=== PATIENT | male | born 1940 | race Caucasian/White ===

== ENCOUNTER 2016-09-21 05:37 | Inpatient (IN) | payer OTHER ==
[2016-09-21] MEDS ORDERED: LIDOCAINE 1% 2 ML INJ ONE (06:23)
[2016-09-21] MEDS ORDERED: ceFAZolin 2 GM/DEXTROSE 100 ML IV ONE (06:30)
[2016-09-21] MEDS ORDERED: THROMBIN (BOVINE) 5,000 UNIT VIAL TP ONE (06:46)
[2016-09-21] MEDS ORDERED: BUPIVACAINE/EPI 0.25% 30 ML SDV ONE (06:46)
[2016-09-21] MEDS ORDERED: BACITRACIN 50,000 UNITS/10 ML SYR IRR ONE ×2 (06:47→11:05)
[2016-09-21] MEDS ORDERED: LACTULOSE 20 GM/30 ML UDCUP PO PRN (07:02)
[2016-09-21] MEDS ORDERED: BISACODYL 10 MG SUPP PR PRN (07:02)
[2016-09-21] MEDS ORDERED: DIAZEPAM 10 MG/2 ML SYR IVP PRN (07:02)
[2016-09-21] MEDS ORDERED: MAGNESIUM HYDROXIDE 30 ML UDCUP PO PRN (07:02)
[2016-09-21] MEDS ORDERED: diphenhydrAMINE 25 MG CAP PO PRN (07:02)
[2016-09-21] MEDS ORDERED: TEMAZEPAM 15 MG CAP PO PRN (07:02)
[2016-09-21] MEDS ORDERED: HYDROmorphONE/DILAUDID 6 MG/30 ML PCA IV PRN (07:02)
[2016-09-21] MEDS ORDERED: ONDANSETRON 4 MG/2 ML VIAL IVP PRN (07:02)
[2016-09-21] MEDS ORDERED: oxyCODONE IR 5 MG TAB PO PRN (07:02)
[2016-09-21] MEDS ORDERED: POLYETHYLENE GLYCOL 3350 17 GM PKT PO PRN (07:02)
[2016-09-21] MEDS ORDERED: NALOXONE HCL 0.4 MG/ML INJ IVP PRN (07:02)
[2016-09-21] MEDS ORDERED: HYDROCODONE/APAP 10/325 TAB PO PRN (07:02)
[2016-09-21] MEDS ORDERED: ONDANSETRON DISINTEGRATING 4 MG TAB PO PRN (07:02)
[2016-09-21] MEDS ORDERED: MIDAZOLAM 2 MG/2 ML VIAL ONE (07:29)
[2016-09-21] MEDS ORDERED: fentaNYL 250 MCG/5 ML INJ ONE (07:35)
[2016-09-21] MEDS ORDERED: PROPOFOL/EMULSION 500 MG/50 ML BOTTLE IV ONE (07:36)
[2016-09-21] MEDS ORDERED: REMIFENTANIL HCL 1 MG VIAL ONE ×2 (07:36)
[2016-09-21] MEDS ORDERED: epHEDrine SULFATE 10 MG/ML SYR ONE ×2 (07:57→12:24)
[2016-09-21] MEDS ORDERED: ALBUMIN 5% 250 ML BOTTLE IV ONE (07:58)
[2016-09-21] MEDS ORDERED: FAMOTIDINE 20 MG/NACL 50 ML IV SCH (09:00)
[2016-09-21] MEDS ORDERED: VASOPRESSIN 20 UNIT/ML VIAL ONE (09:39)
[2016-09-21] MEDS ORDERED: PHENYLEPHRINE HCL 100 MCG/ML SYR ONE (09:39)
[2016-09-21] MEDS ORDERED: DEXAMETHASONE 4 MG/ML VIAL ONE ×4 (12:21→12:22)
[2016-09-21] MEDS ORDERED: ceFAZolin 1 GM VIAL ONE (12:41)
[2016-09-21] MEDS ORDERED: fentaNYL 100 MCG/2 ML INJ ONE (12:58)
[2016-09-21] MEDS ORDERED: HYDROmorphONE/DILAUDID 1 MG/ML SYR ONE ×4 (13:36→15:12)
--- NOTE | 2016-09-21 13:44 | SOAPPROG ---
SOAP Progress Note Assessment/Plan: Post Op Visit: S: Awake and alert. NAD. Pt with expected lower back pain O: AFVSS/PERRLA/EOMI no droop CN 2-12 grossly intact +lt touch 5/5 BUE/BLE = CDI ROLANDO in place A/P: 76 yo male that is s/p removal of L2-L4 hardware with new TLIF L4/5 and L5/ S1 with new L3-S1 fusion -orders in place -call with any questions or concerns -take medications as directed -pt seen by Dr Dial as well -brace when out of bed 09/21/16 13:41 ICD10 Worksheet Patient Problems: Problems Problem Status Onset Arthrodesis status Acute Lumbar radiculitis Acute Lumbar stenosis Acute
[2016-09-21] MEDS ORDERED: DIAZEPAM 10 MG/2 ML SYR ONE (13:46)
[2016-09-21] MEDS: METOPROLOL SUCCINATE XR 25 MG TAB PO SCH (15:35)
[2016-09-21] MEDS: LOSARTAN POTASSIUM 50 MG TAB PO SCH (15:35)
[2016-09-21] MEDS: SERTRALINE HCL 50 MG TAB PO SCH (15:37)
[2016-09-21] MEDS: SENNOSIDES/DOCUSATE SODIUM TAB PO SCH ×2 (15:37→20:13)
[2016-09-21] MEDS: METHOCARBAMOL 750 MG TAB PO PRN (16:44)
[2016-09-21] MEDS: HYDROmorphONE/DILAUDID 4 MG TAB PO PRN ×2 (16:44→20:13)
[2016-09-21] MEDS: NS W/ 20 KCl/L 1,000 ML IV SCH (16:47)
[2016-09-21] MEDS: HYDROmorphONE/DILAUDID 1 MG/ML SYR IVP PRN ×5 (17:16→23:35)
[2016-09-21] MEDS: EZETIMIBE 10 MG TAB PO SCH (20:12)
[2016-09-21] MEDS: ROSUVASTATIN CALCIUM 40 MG TAB PO SCH (20:12)
[2016-09-21] MEDS: DIAZEPAM 5 MG TAB PO PRN (20:13)
[2016-09-21] MEDS: FAMOTIDINE 20 MG TAB PO SCH (20:13)
[2016-09-22] MEDS: METHOCARBAMOL 750 MG TAB PO PRN ×3 (00:20→13:33)
[2016-09-22] MEDS: HYDROmorphONE/DILAUDID 4 MG TAB PO PRN ×6 (00:20→22:09)
[2016-09-22] MEDS: HYDROmorphONE/DILAUDID 1 MG/ML SYR IVP PRN ×2 (02:20→21:30)
--- NOTE | 2016-09-22 02:23 | GOP ---
[f rep st] OPERATIVE REPORT DATE OF OPERATION: 09/21/2016 SURGEON: Jessie Dial MD SUPERVISOR [employer] PROCESSING: Tae Slater PA-C. PREOPERATIVE DIAGNOSIS: 1. Lumbar spondylosis. 2. Lumbar adjacent segment disease. 3. Bilateral lumbosacral radiculopathy. 4. Broken hardware at L3-4. 5. 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 6. Severe bilateral foraminal stenosis, L4-5, L5-S1. 7. Spinal stenosis, L4-5, L5-S1. POSTOPERATIVE DIAGNOSIS: 1. Lumbar spondylosis. 2. Lumbar adjacent segment disease. 3. Bilateral lumbosacral radiculopathy. 4. Broken hardware at L3-4. 5. 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 6. Severe bilateral foraminal stenosis, L4-5, L5-S1. 7. Spinal stenosis, L4-5, L5-S1. PROCEDURE PERFORMED: 1. Removal of posterior segmental instrumentation, L2-L3- L4 (19665). 2. Placement of new segmental instrumentation, L3-L4-L5- S1 (73406). 3. Same-incision bone graft harvest. 4. Posterolateral and intervertebral arthrodesis with bilateral decompressions, and a left-sided ap proach at L4-5 and a right-sided approach at L5-S1 ([id number], [id number]). 5. Placement of expandable biomechanical intervertebral device, L4-5, L5-S1. 6. Spinal stereotaxy. 7. Microscope. 8. Posterolateral arthrodesis only at L3-4 ([id number]). 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 ESTIMATED BLOOD LOSS: 500 cc. INDICATIONS: The patient is a 76-year-old gentleman, who had a prior history of successful L2-3 fus ion, followed sometime later by a successful adjacent segment fusion at L3-4, who came in complainin g of right greater than left lumbosacral radiculopathy, but bilateral symptoms, and his MRI demonstr ated progressive stenosis at L4-5 and bilateral recess stenosis at 4-5, 5-1. There was also signifi cant bilateral foraminal stenosis at L4-5, 5-1. Subsequent x-rays demonstrated evidence of a fractu re of the right-sided jason at L3-4, and pseudoarthrosis was suspected, but we did not feel this was t he cause of this new right-sided symptoms. I suggested extending the fusion from L2 all the way cholo n to the sacrum, and explained to him on the risk of continued symptoms, nerve injury, spinal fluid leak, pseudoarthrosis, and further adjacent segment disease, at this point, above the fusion. He kn ew there was a greater risk of pseudoarthrosis at the sacrum, and our plan was to used bicortical sc rews at S1. He accepted these risks. He wanted to proceed. DESCRIPTION OF PROCEDURE: The patient was taken to the operating room, placed in the supine positio n. General anesthesia was begun. He was flipped prone onto the Pancho table. Care was taken to p ad all points of contact. His back was sterilely prepped and draped by the surgeon. A localizing x -ray was taken. We opened the prior incision and extended it inferiorly for a distance of about 8 c m for a total length of incision of about 12 cm. Subcutaneous tissue was dissected using the plasma blade down through the fascia, and a subperiosteal dissection was made down to the inferior lamina of L2, the laminae of L3, 4, 5, and the sacrum was exposed. The hardware on the right at L2-L3-L4 w as exposed as well as the hardware on the left at L3-4. We removed all the segmental hardware and, indeed, there was a broken jason on the right-hand side. There was still solid bony purchase of the s crews themselves. On the left-hand side where the jason was not broken, the left L4 screw was slightl y more loose than the left L3 screw, but there had not been complete compromise on that pedicle. We denuded the facet joints bilaterally at L4-5, 5-1, and after removing the hardware, we thoroughly r e-prepped the L3-4 level, anticipating that we would have confirmation of the pseudoarthrosis. Ther e was really very little motion at L3-4, and it was difficult to get these levels to move relative t o 1 another, but I was convinced that there, almost certainly after removal of the hardware, was a p seudarthrosis. We performed an O-arm span and it was carefully inspected, and on the right, there w as a hairline area just below the pedicle that had non fused, and on the left-hand side, this grain merchandiser olateral fusion clearly had not taken. We then used stealth navigation to place pedicle screws bila terally at L3, L4, L5, and the sacrum, and we placed bicortical screws at the sacrum. We used 7.5 m m on the left, we used a 7.5 mm at L4, and on the right, we used several 7.5 mm. There was excellen t bony purchase of all of the hardware. We irrigated with antibiotic saline solution. We took 100 mm rods that were pre-bent and increased the lordosis slightly on these, and placed them down over t he rods, and reduced our hardware onto the rods themselves. This caused some distraction between L3 , L4, L5, and the sacrum, and we were now more clearly able to visualize the small area of pseudoart hrosis, particularly visible on the right-hand side at L3-4, and this area was fully decorticated fo r posterolateral arthrodesis. We also improved our visualization on the left at L3-4, and final tig htened the cap screws down on the rods, and this got substantial elevation between L4 and L5 by redu cing the hyperlordosis. We then removed all the soft tissue from the L4-L5 spinous process and harv ested these for autologous grafting purposes. We then harvested the L4 lamina and the L5 lamina for autologous grafting purposes and under the scope, we drilled bilateral laminectomies at L5-S1 and L 4-5, and performed bilateral decompressions. On the right at L5-S1, we elected to do a complete fac etectomy to decompress the exiting L5 nerve root there. There was also left-sided foraminal stenosi s with exiting L5 root at L5-S1 on the left-hand side, and we performed a more extended foraminotomy on the left to decompress the exiting root. We then performed bilateral decompressions at L4-5 and in this case, we performed a left-sided facetectomy for decompression of the exiting left L4 root. We then did a right lateral recess decompression at L4-5 to decompress the right-sided L5 root. We then swept the thecal sac medially at L5-S1, removed the disk and the cartilaginous endplates, inci sed the space for placement of a 7 mm expandable graft. We chose a shorter 7 x 23 mm cage for L5-S1 . We chose a 9 x 28 mm subsequently at L4-5. At L4-5, we did incise the disk from the left-sided a pproach, removed the disk and the cartilaginous endplates. This was a much larger disk space, and w e got a large amount of disk out of it. We placed BMP into each of the disk spaces, followed by bon y autograft, followed by our expandable cages, a 7 x 23 at L5-S1 and a 9 x 28 at L4-5, and expanded these according to company specifications. They had been packed with bone morphogenic protein. We used a grand total of 6 mg of BMP for this surgery. We then placed the BMP and bony autograft poste rolaterally bilaterally from L3 to the sacrum. We placed a large amount of bone posterolaterally at L3-4 to ensure arthrodesis there. This bone had been very thoroughly prepped. We placed a subfasc ial drain and then closed the incision in multiple layers using Vicryl sutures. A running PDS was p laced in the skin itself. There were no complications. COMPLICATIONS: None. INSTRUMENTATION USED: [employer] 5.5 system. /[id number]/MODL
[2016-09-22] MEDS: DIAZEPAM 5 MG TAB PO PRN ×2 (02:25→19:36)
[2016-09-22] MEDS: NS W/ 20 KCl/L 1,000 ML IV SCH ×2 (07:23→21:37)
[2016-09-22 08:19] LABS: % IMMATURE GRANULYOCYTES 0.4 % (0.0-1.1); ABSOLUTE IMMATURE GRANULOCYTES 0.05 10^3/uL (0.00-0.10); ADD DIFF? NO; ADD MORPH? NO; ADD SCAN? NO; ATYPICAL LYMPHOCYTE FLAG 0 (0-99); FRAGMENT RBC FLAG 0 (0-99); HEMOGLOBIN 9.8 g/dL (13.7-17.5); LEFT SHIFT FLG 10 (0-99); LIPEMIA HEMOLYSIS FLAG 90 (0-99); MEAN CELL HEMOGLOBIN 32.3 pg (27.9-34.1); MEAN CELL HEMOGLOBIN CONCENTR. 33.8 g/dL (32.4-36.7); MEAN CELL VOLUME 95.7 fL (81.5-99.8); MEAN PLATELET VOLUME 8.9 fL (8.7-11.7); PLATELET CLUMPS FLAG 0 (0-99); PLATELET COUNT 125 10^3/uL (150-400); RED BLOOD CELL COUNT 3.03 10^6/uL (4.40-6.38); RED CELL DISTRIBUTION WIDTH 12.1 % (11.5-15.2)
[2016-09-22 08:54] LABS: ANION GAP 5 mEq/L (8-16); CALCIUM 8.7 mg/dL (8.5-10.4); CARBON DIOXIDE 26 mEq/l (22-31); CHLORIDE 103 mEq/L (97-110); CREATININE 0.8 mg/dL (0.7-1.3); GLOMERULAR FILTRATION RATE > 60; GLUCOSE 105 mg/dL (70-100); POTASSIUM 4.8 mEq/L (3.5-5.2); SODIUM 134 mEq/L (134-144)
[2016-09-22] MEDS: FAMOTIDINE 20 MG TAB PO SCH ×2 (09:00→19:36)
[2016-09-22] MEDS: LOSARTAN POTASSIUM 50 MG TAB PO SCH (09:30)
[2016-09-22] MEDS: METOPROLOL SUCCINATE XR 25 MG TAB PO SCH (09:30)
[2016-09-22] MEDS: SENNOSIDES/DOCUSATE SODIUM TAB PO SCH ×2 (09:31→19:36)
[2016-09-22] MEDS: THYROID 60 MG TAB PO SCH (09:31)
[2016-09-22] MEDS: SERTRALINE HCL 50 MG TAB PO SCH (09:31)
--- NOTE | 2016-09-22 09:31 | SOAPPROG ---
SOAP Progress Note Assessment/Plan: Assessment: 76 yo M POD #1 sp L3-S1 fusion w/ L4/5, L5/S1 TLIF Plan: stable and doing well overall :) PT/OT dow out x-rays today scd/paola for dvt prophylaxis wean IVF please call with neuro changes discussed with Dr Dial 09/22/16 09:28 Subjective: surgical back pain, no leg pain. no weakness. Objective: Vital Signs Temp Pulse Resp BP Pulse Ox 37.0 C 65 14 104/62 96 09/22/16 07:47 09/22/16 07:47 09/22/16 07:47 09/22/16 07:47 09/22/16 07:47 Laboratory Results 09/22/16 08:00 09/22/16 08:00 09/21/16 09/22/16 09/23/16 05:59 05:59 05:59 Intake Total 5300 Output Total 3690 Balance 1610 AAOX4, +FC PERRL, EOMI, no facial droop 5/5 + light touch C/D/I ICD10 Worksheet Patient Problems: Problems Problem Status Onset Arthrodesis status Acute Lumbar radiculitis Acute Lumbar stenosis Acute
[2016-09-22] MEDS: ROSUVASTATIN CALCIUM 40 MG TAB PO SCH (19:36)
[2016-09-22] MEDS: EZETIMIBE 10 MG TAB PO SCH (19:36)
[2016-09-23] MEDS: METHOCARBAMOL 750 MG TAB PO PRN ×3 (00:19→14:30)
[2016-09-23] MEDS: HYDROmorphONE/DILAUDID 4 MG TAB PO PRN ×5 (02:38→21:27)
--- NOTE | 2016-09-23 07:14 | NEUSURGPN ---
Date of Surgery: 09/21/16 Post Op Day: 2 Assessment/Plan: Assessment: 76 yo M POD #2 s/p L3-S1 fusion w/ L4/5, L5/S1 TLIF Plan: -stable and doing well overall -pain better under control this am -PT/OT-CPM -dow out -CDI -x-rays look good -scd/paola for dvt prophylaxis -wean IVF -please call with neuro changes -seen with Dr Dial Subjective: Awake and alert. NAD. Eating/drinking and voiding. No f/c/n/v/d. No flores/neck/ chest/abd or gu complaints. Pain better controlled this am Objective: AFVSS/PERRLA/EOMI no droop CN 2-12 grossly intact +lt touch 5/5 BUE/BLE = CDI ROLANDO in place-to be removed this am Neuro Check Frequency: per routine Urinary Catheter in Place: No Catheter Insertion Date: 09/21/16 - Physician Discussed Patient with : Jayro Patient Seen by : Jayro Neurosurgery Physical Exam - Vitals, I&O, Labs I and O 09/22/16 09/23/16 09/24/16 05:59 05:59 05:59 Intake Total 5300 825 Output Total 3690 1980 600 Balance 1610 -1155 -600 Weight 99.79 kg Intake: Oral (ml) 1000 300 IV Intake (ml) 3200 IV Infused (ml) 1100 525 NS W/ 20 KCl/L 1,000 ml @ 1050 525 75 mls/hr IV CONT CHANEL Rx #:[id number] ceFAZolin 1 GM/DEXTROSE 50 50 ml @ 200 mls/hr IV Q8H CHANEL Rx#:[id number] Output: Urine (ml) 2320 1550 600 Catheter 2320 Toilet 500 Urinal 1050 600 Estimated Blood Loss (ml) 500 Wound Drainage (ml) 870 385 Left Back Pancho Rossi 870 385 Wound Drainage (ml) 45 #1 Back Pancho Rossi 45 Other: Intake Quantity Yes Sufficient Number of Voids Toilet 1 Number of Stools Toilet 1 Vital Signs Temp Pulse Resp BP Pulse Ox 36.6 C 68 17 104/62 99 09/23/16 00:00 09/23/16 02:41 09/23/16 00:00 09/23/16 02:41 09/23/16 00:00 Laboratory Results 09/22/16 08:00 09/22/16 08:00 ICD10 Worksheet Patient Problems: Problems Problem Status Onset Arthrodesis status Acute Lumbar radiculitis Acute Lumbar stenosis Acute
[2016-09-23] MEDS: METOPROLOL SUCCINATE XR 25 MG TAB PO SCH (09:32)
[2016-09-23] MEDS: LOSARTAN POTASSIUM 50 MG TAB PO SCH (09:32)
[2016-09-23] MEDS: THYROID 60 MG TAB PO SCH (09:33)
[2016-09-23] MEDS: ENOXAPARIN 40 MG/0.4 ML SYR SC SCH (09:33)
[2016-09-23] MEDS: SERTRALINE HCL 50 MG TAB PO SCH (09:34)
[2016-09-23] MEDS: FAMOTIDINE 20 MG TAB PO SCH ×2 (09:34→21:26)
[2016-09-23] MEDS: HYDROmorphONE/DILAUDID 1 MG/ML SYR IVP PRN (09:34)
[2016-09-23] MEDS: SENNOSIDES/DOCUSATE SODIUM TAB PO SCH ×2 (09:34→21:27)
[2016-09-23] MEDS: ROSUVASTATIN CALCIUM 40 MG TAB PO SCH (21:26)
[2016-09-23] MEDS: EZETIMIBE 10 MG TAB PO SCH (21:26)
[2016-09-23] MEDS: DIAZEPAM 5 MG TAB PO PRN (21:26)
[2016-09-24] MEDS: HYDROmorphONE/DILAUDID 4 MG TAB PO PRN ×3 (01:30→12:22)
[2016-09-24] MEDS: ENOXAPARIN 40 MG/0.4 ML SYR SC SCH (08:33)
[2016-09-24] MEDS: THYROID 60 MG TAB PO SCH (08:35)
[2016-09-24] MEDS: FAMOTIDINE 20 MG TAB PO SCH ×2 (08:35→20:07)
[2016-09-24] MEDS: METHOCARBAMOL 750 MG TAB PO PRN (08:36)
[2016-09-24] MEDS: SENNOSIDES/DOCUSATE SODIUM TAB PO SCH ×2 (08:36→20:07)
[2016-09-24] MEDS: SERTRALINE HCL 50 MG TAB PO SCH (08:37)
[2016-09-24] MEDS: METOPROLOL SUCCINATE XR 25 MG TAB PO SCH (08:37)
[2016-09-24] MEDS: LOSARTAN POTASSIUM 50 MG TAB PO SCH (08:37)
[2016-09-24] MEDS ORDERED: ENOXAPARIN 40 MG/0.4 ML SYR SC SCH (09:00)
--- NOTE | 2016-09-24 10:36 | NEUSURGPN ---
Assessment/Plan: Assessment: 76 yo M POD #3 s/p L3-S1 fusion w/ L4/5, L5/S1 TLIF Plan: -stable and doing well overall -pain - continue current regimen -PT/OT-CPM, needs to do stairs -dow out -CDI -x-rays look good -scd/paola for dvt prophylaxis -wean IVF -please call with neuro changes Subjective: Pt resting in bed, feels ok when he is still. Hasn't been able to do stairs yet. Objective: AAOx3 NAD VSS MAEx4 Motor 5/5 BLE +LT Urinary Catheter in Place: No Catheter Insertion Date: 09/21/16 Neurosurgery Physical Exam - Vitals, I&O, Labs I and O 09/23/16 09/24/16 09/25/16 05:59 05:59 05:59 Intake Total 825 2200 Output Total 1980 1700 Balance -1155 500 Intake: Oral (ml) 300 2200 IV Infused (ml) 525 NS W/ 20 KCl/L 1,000 ml @ 525 75 mls/hr IV CONT CHANEL Rx #:[id number] Output: Urine (ml) 1550 1700 Toilet 500 Urinal 1050 1700 Wound Drainage (ml) 385 Left Back Pancho Rossi 385 Wound Drainage (ml) 45 #1 Back Pancho Rossi 45 Other: Number of Voids Toilet 1 Urinal 2 Number of Stools Toilet 1 Vital Signs Temp Pulse Resp BP Pulse Ox 36.9 C 81 14 119/65 96 09/24/16 08:13 09/24/16 08:13 09/24/16 08:13 09/24/16 08:13 09/24/16 08:13 Laboratory Results 09/22/16 08:00 09/22/16 08:00 ICD10 Worksheet Patient Problems: Problems Problem Status Onset Arthrodesis status Acute Lumbar radiculitis Acute Lumbar stenosis Acute
[2016-09-24] MEDS: ROSUVASTATIN CALCIUM 40 MG TAB PO SCH (20:07)
[2016-09-24] MEDS: EZETIMIBE 10 MG TAB PO SCH (20:07)
[2016-09-24] MEDS: DIAZEPAM 5 MG TAB PO PRN (20:08)
[2016-09-25] MEDS: THYROID 60 MG TAB PO SCH (08:45)
[2016-09-25] MEDS: FAMOTIDINE 20 MG TAB PO SCH ×2 (08:46→20:51)
[2016-09-25] MEDS: SERTRALINE HCL 50 MG TAB PO SCH (08:47)
[2016-09-25] MEDS: SENNOSIDES/DOCUSATE SODIUM TAB PO SCH ×2 (08:47→20:52)
[2016-09-25] MEDS: LOSARTAN POTASSIUM 50 MG TAB PO SCH (08:48)
[2016-09-25] MEDS: ENOXAPARIN 40 MG/0.4 ML SYR SC SCH (08:48)
[2016-09-25] MEDS: ACETAMINOPHEN 325 MG TAB PO PRN ×2 (08:53→18:50)
[2016-09-25] MEDS: HYDROmorphONE/DILAUDID 4 MG TAB PO PRN ×2 (08:53→18:50)
[2016-09-25] MEDS: METHOCARBAMOL 750 MG TAB PO PRN ×2 (08:54→18:49)
--- NOTE | 2016-09-25 09:43 | NEUSURGPN ---
Assessment/Plan: Assessment: 76 yo M POD #4 s/p L3-S1 fusion w/ L4/5, L5/S1 TLIF Plan: -stable and doing well overall -pain - continue current regimen -PT/OT-CPM, needs to do stairs today -Incision is CDI -dressing change -x-rays look good -scd/paola for dvt prophylaxis -DC to home tomorrow -please call with neuro changes Subjective: Pt resting in bed, states he wasn't able to do stairs yesterday Objective: AAOx3 NAD VSS MAEx4 Motor 5/5 BLE Incision cdi steri strips in place Urinary Catheter in Place: No Catheter Insertion Date: 09/21/16 Neurosurgery Physical Exam - Vitals, I&O, Labs I and O 09/24/16 09/25/16 09/26/16 05:59 05:59 05:59 Intake Total 2200 1000 Output Total 1700 Balance 500 1000 Intake: Oral (ml) 2200 1000 Output: Urine (ml) 1700 Urinal 1700 Other: Number of Voids Toilet 3 Urinal 2 Vital Signs Temp Pulse Resp BP Pulse Ox 36.9 C 71 14 111/51 L 98 09/25/16 08:00 09/25/16 08:00 09/25/16 08:00 09/25/16 08:00 09/25/16 08:00 Laboratory Results 09/22/16 08:00 09/22/16 08:00 ICD10 Worksheet Patient Problems: Problems Problem Status Onset Arthrodesis status Acute Lumbar radiculitis Acute Lumbar stenosis Acute
[2016-09-25] MEDS: METOPROLOL SUCCINATE XR 25 MG TAB PO SCH (11:32)
[2016-09-25] MEDS: EZETIMIBE 10 MG TAB PO SCH (20:51)
[2016-09-25] MEDS: ROSUVASTATIN CALCIUM 40 MG TAB PO SCH (20:51)
[2016-09-26] MEDS: HYDROmorphONE/DILAUDID 4 MG TAB PO PRN ×2 (05:55→09:50)
--- NOTE | 2016-09-26 07:25 | NEUSURGPN ---
Date of Surgery: 09/21/16 Post Op Day: 5 Assessment/Plan: Assessment: 76 yo M POD #5 s/p L3-S1 fusion w/ L4/5, L5/S1 TLIF Plan: -stable and doing well overall -pain - continue current regimen as this is going well for him -PT/OT-CPM -Incision is CDI -dressing change -x-rays look good -scd/paola for dvt prophylaxis -DC to home today -please call with neuro changes Subjective: Awake and alert. NAD. Eating/drinking and voiding. No f/c/n/v/d. No flores/neck/ chest/abd or gu complaints. No f/c/n/v/d. Objective: AAOx3 NAD VSS MAEx4 Motor 5/5 BLE Incision cdi steri strips in place Neuro Check Frequency: per routine Urinary Catheter in Place: No Catheter Insertion Date: 09/21/16 - Physician Discussed Patient with : Jayro Patient Seen by : Jayro Neurosurgery Physical Exam - Vitals, I&O, Labs I and O 09/25/16 09/26/16 09/27/16 05:59 05:59 05:59 Intake Total 1000 2700 Output Total 380 Balance 1000 2320 Intake: Oral (ml) 1000 2700 Output: Urine (ml) 380 Urinal 380 Other: Number of Voids Toilet 3 4 Urinal 4 Number of Stools Toilet 1 Vital Signs Temp Pulse Resp BP Pulse Ox 36.8 C 61 16 121/70 H 98 09/25/16 23:55 09/25/16 23:55 09/25/16 23:55 09/25/16 23:55 09/25/16 23:55 Laboratory Results 09/22/16 08:00 09/22/16 08:00 ICD10 Worksheet Patient Problems: Problems Problem Status Onset Arthrodesis status Acute Lumbar radiculitis Acute Lumbar stenosis Acute
--- NOTE | 2016-09-26 07:34 | PDIAF ---
- Diagnosis Diagnosis: s/p lumbar fusion Code Status: Full Code - Medication Management Discharge Medications: Medications to Continue on Transfer Ezetimibe [Zetia 10 MG (*)] 10 mg PO HS 01/25/12 [Last Taken 09/20/16 21:00] Losartan Potassium [Cozaar 50 mg (*)] 50 mg PO DAILY 01/25/12 [Last Taken ] Rosuvastatin Calcium [Crestor 40mg (*)] 40 mg PO HS 01/25/12 [Last Taken 21:00] Sertraline HCl [Zoloft 50mg (*)] 50 mg PO DAILY 04/24/15 [Last Taken 09/21/16 05 :15] Metoprolol Succinate Xr [Toprol Xl 25 mg (*)] 25 mg PO DAILY 05/12/15 [Last Taken 09/21/16 05:15] Cholecalciferol Vit D3 [Vitamin D3 (*)] 5,000 units PO DAILY 08/24/16 [Last Taken 09/17/16] Herbals/Supplements -Info Only 1 ea PO DAILY 09/21/16 [Last Taken Unknown] Thyroid [[place] Thyroid 60 MG (*)] 90 mg PO DAILY 09/21/16 [Last Taken 09/21/16 05:15] Acetaminophen [Tylenol 325mg (*)] 325 - 650 mg PO Q4HRS PRN #0 tab 09/26/16 [ Last Taken Unknown] Diazepam [Valium 5 MG (*)] 5 mg PO QID PRN #40 tab 09/26/16 [Last Taken Unknown] Enoxaparin [Lovenox 40 MG (*)] 40 mg SC DAILY #7 syr 09/26/16 [Last Taken Unknown] HYDROmorphone HCL [Dilaudid 4 mg (*)] 4 mg PO Q4HRS PRN #90 tab 09/26/16 [Last Taken Unknown] Methocarbamol [Robaxin 750 mg (*)] 750 mg PO QID PRN #60 tab 09/26/16 [Last Taken Unknown] Sennosides/Docusate Sodium [Senokot-S] 1 - 2 tab PO BID #30 tab 09/26/16 [Last Taken Unknown] oxyCODONE CR [Oxycontin] 10 mg PO Q12HRS #14 tab 09/26/16 [Last Taken Unknown] Group Home Antibiotics: none Discharge Medications: Refer to the Discharge Home Medication list for PRN reason. PICC Care - Routine: N/A - Orders Services needed: Home Care, Physical Therapy, Occupational Therapy Home Care Face to Face: I certify that this patient was under my care and that I had the required lyrt-ex-hrix encounter meeting the encounter requirements on the discharge day. My findings support the fact that the patient is homebound as defined in CMS Chapter 7 Medicare Benefits Manual 30.1.1, The condition of the patient is such that there exists a normal inability to leave home and consequently, leaving home would require a considerable and taxing effort. Oxygen: to keep O2 sat above 90% Diet Recommendation: no restrictions on diet Diet Texture: Regular Texture Diet Lopes: Not applicable Wound Care Instructions: leave steri strips on until follow up post op appt - Follow Up Care Current Providers and Referrals: ERICK MOON [Other] Stone Dial MD [Medical Doctor] - (follow up in 2-3 weeks)
[2016-09-26] MEDS: THYROID 60 MG TAB PO SCH (07:57)
[2016-09-26] MEDS: SENNOSIDES/DOCUSATE SODIUM TAB PO SCH (07:58)
[2016-09-26] MEDS: SERTRALINE HCL 50 MG TAB PO SCH (07:58)
[2016-09-26] MEDS: ENOXAPARIN 40 MG/0.4 ML SYR SC SCH (07:58)
[2016-09-26] MEDS: FAMOTIDINE 20 MG TAB PO SCH (08:23)
[2016-09-26] MEDS: LOSARTAN POTASSIUM 50 MG TAB PO SCH (08:23)
[2016-09-26] MEDS: METOPROLOL SUCCINATE XR 25 MG TAB PO SCH (08:23)
[2016-09-26 09:24] VITALS: BP 121/75; PULSE 75; RESP 14; TEMP 99.2; O2SAT 91
[2016-09-26] MEDS: METHOCARBAMOL 750 MG TAB PO PRN (09:50)
== END 2016-09-26 10:09 | disposition home health service (06) | DRG 460 ==
LOC: F3N 05:37
PROVIDERS: ADMIT Neurological Surgery; ATTEND Neurological Surgery
PROC: 3E0U0GB Introduction of Recombinant Bone Morphogenetic Protein into Joints, Open Approach (ICD-10-PCS; principal; 2016-09-21 07:30)
PROC: 0SB20ZZ Excision of Lumbar Vertebral Disc, Open Approach (ICD-10-PCS; principal; 2016-09-21 07:30)
PROC: 0SG30AJ Fusion of Lumbosacral Joint with Interbody Fusion Device, Posterior Approach, Anterior Column, Open Approach (ICD-10-PCS; principal; 2016-09-21 07:30)
PROC: 0SG3071 Fusion of Lumbosacral Joint with Autologous Tissue Substitute, Posterior Approach, Posterior Column, Open Approach (ICD-10-PCS; principal; 2016-09-21 07:30)
PROC: 0SG00AJ Fusion of Lumbar Vertebral Joint with Interbody Fusion Device, Posterior Approach, Anterior Column, Open Approach (ICD-10-PCS; principal; 2016-09-21 07:30)
PROC: 00NY0ZZ Release Lumbar Spinal Cord, Open Approach (ICD-10-PCS; principal; 2016-09-21 07:30)
PROC: 0SG1071 Fusion of 2 or more Lumbar Vertebral Joints with Autologous Tissue Substitute, Posterior Approach, Posterior Column, Open Approach (ICD-10-PCS; principal; 2016-09-21 07:30)
PROC: 0SP00AZ Removal of Interbody Fusion Device from Lumbar Vertebral Joint, Open Approach (ICD-10-PCS; principal; 2016-09-21 07:30)
DX: M96.0 Pseudarthrosis after fusion or arthrodesis (principal); T84.418A Breakdown (mechanical) of other internal orthopedic devices, implants and grafts, initial encounter; M47.27 Other spondylosis with radiculopathy, lumbosacral region; M48.07 Spinal stenosis, lumbosacral region
CPT/HCPCS: 97116-GP; 97161-GP; 97165-GO; 97535-GO; C1713; G8978-GP-CI; G8978-GP-CJ; G8979-GP-CI; G8981-GP-CI; G8987-GO-CI; G8988-GO-CI; G8989-GO-CI; J0690; J1100; J1170; J1650; J2250; J2370; J2704; J3010; P9041